=== PATIENT | female | born 1950 | race Caucasian/White ===

== ENCOUNTER 2025-03-21 23:54 | Inpatient (IN) | payer OTHER, MEDICARE ==
[~2025-03-21] VITALS: Ht 162.6 cm; Wt 55.0 kg
[~2025-03-21 23:54] MED LIST: LEVO50TA PO; LOSA1TAB36 PO; MEMA10TA PO; SIMV-49 PO
[2025-03-22] VITALS (31 sets, daily range): BP systolic 97–172; BP diastolic 61–127; TEMP 98–99; O2SAT 92–100
[2025-03-22] MEDS ORDERED: DILT30TA2 GT (00:33)
[2025-03-22] MEDS ORDERED: PANT40TA2 GT (00:33)
[2025-03-22] MEDS ORDERED: ACET-3117 GT (00:33)
[2025-03-22] MEDS ORDERED: OMEP40CA21 GT (00:33)
[2025-03-22] MEDS ORDERED: SCOP1PAT13 TD (00:33)
[2025-03-22] MEDS ORDERED: SEVE0.8P GT (00:33)
[2025-03-22] MEDS ORDERED: CINA60TA4 GT (00:33)
[2025-03-22] MEDS ORDERED: HEPA500034 SUBCUT (00:33)
[2025-03-22] MEDS ORDERED: CEPH500T GT (00:33)
[2025-03-22] MEDS ORDERED: BISA-79 GT (00:33)
[2025-03-22] MEDS ORDERED: RENA-VITE GT (00:33)
[2025-03-22] MEDS ORDERED: IPRA3AMP22 IH (00:33)
[2025-03-22] MEDS ORDERED: DOCU-342 GT (00:33)
[2025-03-22] MEDS ORDERED: MIDO10TA3 GT ×2 (00:33)
[2025-03-22] MEDS ORDERED: METO5TAB87 GT (00:33)
[2025-03-22 00:37] LABS: PLATELET COUNT (AUTO) 483 K/uL (179-408); RED BLOOD CELL COUNT(AUTO) 3.86 MIL/uL (3.63-4.92); RED CELL DISTRIBUTION WIDTH 19.8 % (12.3-17.7); WHITE BLOOD COUNT (AUTO) 16.3 K/uL (3.8-11.8)
[2025-03-22 00:45] LABS: CREATININE 6.1 mg/dL (0.6-1.3); SODIUM SERUM 140 mmol/L (136-145); UREA NITROGEN, BLOOD 69 mg/dL (7-18)
[2025-03-22] MEDS ORDERED: ONDANSETRON 4 MG/2 ML VIAL ONE (00:46)
[2025-03-22] MEDS: IV NORMAL SALINE 1000 ML BAG IV ONE (00:46)
[2025-03-22] MEDS: ONDANSETRON 4 MG/2 ML VIAL IV ONE (00:46)
[2025-03-22 00:50] LABS: ASPARTATE AMINOTRANSFERASE 17 U/L (15-37); TOTAL PROTEIN, SERUM 8.3 g/dL (6.4-8.2)
[2025-03-22] MEDS ORDERED: PIPERACILLIN/TAZOBACTAM/D5W 50 ML IV ONE (01:01)
[2025-03-22] MEDS ORDERED: FAMOTIDINE. 20 MG/2 ML VIAL IV ONE (01:02)
[2025-03-22] MEDS: FAMOTIDINE. 20 MG/2 ML VIAL IV ONE (01:09)
[2025-03-22] MEDS: PIPERACILLIN SODIUM/TAZOBACTAM 3.375 G in IV DEXTROSE 5% 50 ML IV ONE (01:09)
[2025-03-22] MEDS ORDERED: ONDANSETRON 4 MG/2 ML VIAL IV PRN (06:15)
[2025-03-22] MEDS ORDERED: ENOXAPARIN SODIUM 40 MG/0.4 ML DISP.SYRIN SQ SCH (06:15)
[2025-03-22] MEDS ORDERED: ACETAMINOPHEN 650 MG SUPP.RECT RC PRN (06:15)
[2025-03-22 06:27] LABS: PLATELET COUNT (AUTO) 449 K/uL (179-408); RED BLOOD CELL COUNT(AUTO) 3.61 MIL/uL (3.63-4.92); RED CELL DISTRIBUTION WIDTH 20.3 % (12.3-17.7); WHITE BLOOD COUNT (AUTO) 14.5 K/uL (3.8-11.8)
[2025-03-22 06:41] LABS: ASPARTATE AMINOTRANSFERASE 19 U/L (15-37); CREATININE 6.2 mg/dL (0.6-1.3); SODIUM SERUM 143 mmol/L (136-145); TOTAL PROTEIN, SERUM 7.7 g/dL (6.4-8.2); UREA NITROGEN, BLOOD 73 mg/dL (7-18)
[2025-03-22] MEDS: PANTOPRAZOLE SODIUM 40 MG VIAL IV SCH (08:17)
[2025-03-22] MEDS: IV NS 1000 ML 1,000 ML IV PRN (08:18)
[2025-03-22] MEDS ORDERED: REMEDY ESSENTIAL ZINC PASTE 113 GM TOP PRN (09:45)
[2025-03-22] MEDS: PIPERACILLIN/TAZO 2.25 G in IV DEXTROSE 5% 50 ML IV SCH (09:46)
[2025-03-22] MEDS: HEPARIN SODIUM,PORCINE 5,000 UNITS/ML VIAL SQ SCH (09:50)
[2025-03-22 10:12] LABS: ABG BASE EXCESS 1.7 mmol/L (-2.0-3.0); ABG HCO3 27.3 mmol/L (21.0-28.0); ABG PCO2 47.4 mmHg (32.0-45.0); ABG PH 7.379 (7.350-7.450); ABG PO2 79.7 mmHg (83.0-108.0); ABG SITE RIGHT RADIAL; ABG TOTAL HEMOGLOBIN 11.8 G/dL (12.0-16.0); AaDO2 95.5 mmHg; FIO2 28.0 %; FLOW, BLOOD GAS 5.00 L/min (0.00-30.00)
[2025-03-22] MEDS ORDERED: BISA10SU61 RC (10:16)
[2025-03-22] MEDS ORDERED: ACET-3752 PO (10:21)
[2025-03-22] MEDS ORDERED: PIPERACILLIN SODIUM/TAZOBACTAM 3.375 G in IV DEXTROSE 5% 50 ML IV SCH (12:00)
[2025-03-22 12:57] LABS: *BILIRUBIN,URIN NEGATIVE (NEGATIVE); *BLOOD, URINE 2+ (NEGATIVE); *CLARITY,URINE CLOUDY (CLEAR); *COLOR,URINE YELLOW (YELLOW); *KETONES,URINE NEGATIVE (NEGATIVE); *UROBILINOGEN,URINE 0.2 E.U./dl (NORMAL); LEUKOCYTE ESTERASE ,URINE 3+ (NEGATIVE); NITRITE, URINE NEGATIVE (NEGATIVE); UGLUCOSE NEGATIVE (NEGATIVE)
[2025-03-22] MEDS: SEVELAMER CARBONATE 800 MG POWD.PACK GT SCH (12:59)
[2025-03-22] MEDS: MIDODRINE HCL 5 MG TABLET GT SCH (13:00)
[2025-03-22] MEDS: METOCLOPRAMIDE HCL 5 MG TABLET GT SCH (13:02)
[2025-03-22] MEDS: DILTIAZEM HCL 30 MG TABLET GT SCH (13:03)
[2025-03-22 13:05] LABS: *PROTEIN,URINE 3+ (NEGATIVE)
[2025-03-22 13:11] LABS: SQUAMOUS EPITHELIAL CELL,UR FEW /HPF (NONE SEEN)
[2025-03-22 14:16] LABS: BAND % (MANUAL) 8 % (0-10); LYMPHOCYTES % (MANUAL) 4 % (20-40); MONOCYTES % (MANUAL) 9 % (2-10); NEUTROPHILS % (MANUAL) 79 % (42-75)
[2025-03-22 14:17] LABS: PLATELET ESTIMATE ADEQUATE
[2025-03-22] MEDS ORDERED: VANCOMYCIN IV 2,000 MG in IV DEXTROSE 5% 500 ML IV ONE (20:30)
[2025-03-22] MEDS ORDERED: VANCOMYCIN IV 200 ML ONE (21:17)
[2025-03-22] MEDS: REMEDY ESSENTIAL ZINC PASTE 113 GM TOP SCH (21:27)
[2025-03-22] MEDS: VANCOMYCIN IV 1,000 MG in IV DEXTROSE 5% 250 ML IV ONE (21:34)
[2025-03-23] VITALS (11 sets, daily range): BP systolic 92–121; BP diastolic 56–69; TEMP 97.2–98.7; O2SAT 90–98
[2025-03-23 05:15] LABS: PLATELET COUNT (AUTO) 421 K/uL (179-408); RED BLOOD CELL COUNT(AUTO) 3.37 MIL/uL (3.63-4.92); RED CELL DISTRIBUTION WIDTH 19.9 % (12.3-17.7); WHITE BLOOD COUNT (AUTO) 11.8 K/uL (3.8-11.8)
[2025-03-23 05:23] LABS: CREATININE 7.2 mg/dL (0.6-1.3); SODIUM SERUM 142 mmol/L (136-145)
[2025-03-23 05:34] LABS: UREA NITROGEN, BLOOD 87 mg/dL (7-18)
[2025-03-23] MEDS: PANTOPRAZOLE ORAL SUSPENSION 40 MG SUSPDR.PKT GT SCH (06:03)
[2025-03-23 06:05] LABS: EOSINOPHILS % (MANUAL) 2 % (0-8); LYMPHOCYTES % (MANUAL) 8 % (20-40); MONOCYTES % (MANUAL) 10 % (2-10); NEUTROPHILS % (MANUAL) 80 % (42-75); PLATELET ESTIMATE INCREASED
[2025-03-23] MEDS: ALBUMIN HUMAN 25% 100 ML IV PRN (08:07)
[2025-03-23] MEDS: FOLIC ACID/VITAMIN B COMP W-C TABLET GT SCH (09:50)
[2025-03-23] MEDS: CINACALCET HCL 30 MG TABLET PO SCH (10:01)
[2025-03-23] MEDS: VANCOMYCIN IV 500 MG in IV DEXTROSE 5% 100 ML IV ONE (14:46)
[2025-03-23] MEDS: NEPRO 1000 ML GT PRN (20:34)
[2025-03-24] VITALS (12 sets, daily range): BP systolic 90–122; BP diastolic 61–72; TEMP 97.5–98.8; O2SAT 92–96
[2025-03-24 07:56] LABS: CREATININE 5.0 mg/dL (0.6-1.3); SODIUM SERUM 138 mmol/L (136-145); UREA NITROGEN, BLOOD 50 mg/dL (7-18)
[2025-03-24 08:35] LABS: PLATELET COUNT (AUTO) 413 K/uL (179-408); RED BLOOD CELL COUNT(AUTO) 3.49 MIL/uL (3.63-4.92); RED CELL DISTRIBUTION WIDTH 19.3 % (12.3-17.7); WHITE BLOOD COUNT (AUTO) 10.0 K/uL (3.8-11.8)
[2025-03-24] MEDS: MEROPENEM 500 MG in IV NORMAL SALINE 50 ML IV SCH (16:34)
[2025-03-25] VITALS (12 sets, daily range): BP systolic 100–139; BP diastolic 70–77; TEMP 97.8–98.9; O2SAT 83–96
[2025-03-25 08:27] LABS: PLATELET COUNT (AUTO) 377 K/uL (179-408); RED BLOOD CELL COUNT(AUTO) 3.59 MIL/uL (3.63-4.92); RED CELL DISTRIBUTION WIDTH 19.4 % (12.3-17.7); WHITE BLOOD COUNT (AUTO) 9.7 K/uL (3.8-11.8)
[2025-03-25 08:48] LABS: CREATININE 4.2 mg/dL (0.6-1.3); SODIUM SERUM 141 mmol/L (136-145); UREA NITROGEN, BLOOD 38 mg/dL (7-18)
[2025-03-25] MEDS: SCOPOLAMINE PATCH 1 MG/72 HRS PATCH TD SCH (09:22)
[2025-03-25] MEDS: POTASSIUM CHLORIDE 20 MEQ POWDER PACKET GT ONE (12:39)
[2025-03-25] MEDS ORDERED: MERO500V23 IV (15:45)
[2025-03-25] MEDS ORDERED: VANC125C11 PO (15:45)
[2025-03-26] VITALS (13 sets, daily range): BP systolic 103–125; BP diastolic 57–66; TEMP 97.8–98.3; O2SAT 92–99
[2025-03-26] MEDS: IPRATROPIUM BROMIDE 0.5 MG/2.5 ML NEBU NEB PRN (01:04)
[2025-03-26] MEDS: ALBUTEROL SULFATE 2.5 MG/3 ML NEBU NEB PRN (01:04)
[2025-03-26 01:10] LABS: HEPATITIS B CORE AB, TOTAL Negative (Negative); HEPATITIS B SURFACE AG Negative (Negative)
== END 2025-03-26 22:00 | DRG 720 ==
LOC: ER 03-22 00:05 → CCU 03-22 05:30 → TELE3 03-23 06:12
PROVIDERS: ADMIT Nurse Practitioner Family; ATTEND Nurse Practitioner Family
PROC: 05H933Z Insertion of Infusion Device into Right Brachial Vein, Percutaneous Approach (ICD-10-PCS; principal; 2025-03-22)
PROC: 5A1D70Z Performance of Urinary Filtration, Intermittent, Less than 6 Hours Per Day (ICD-10-PCS; 2025-03-24)
DX: A41.9 Sepsis, unspecified organism (principal); E43 Unspecified severe protein-calorie malnutrition; A09 Infectious gastroenteritis and colitis, unspecified; R53.2 Functional quadriplegia; Z93.0 Tracheostomy status; I12.0 Hypertensive chronic kidney disease with stage 5 chronic kidney disease or end stage renal disease; I21.A1 Myocardial infarction type 2; R13.10 Dysphagia, unspecified; J18.9 Pneumonia, unspecified organism; N18.6 End stage renal disease; Z99.2 Dependence on renal dialysis; T83.511A Infection and inflammatory reaction due to indwelling urethral catheter, initial encounter; T83.512A Infection and inflammatory reaction due to nephrostomy catheter, initial encounter; J96.11 Chronic respiratory failure with hypoxia; N39.0 Urinary tract infection, site not specified; B96.20 Unspecified Escherichia coli [E. coli] as the cause of diseases classified elsewhere; D63.1 Anemia in chronic kidney disease; G91.2 (Idiopathic) normal pressure hydrocephalus; G30.9 Alzheimer's disease, unspecified; I47.10 Supraventricular tachycardia, unspecified; D75.839 Thrombocytosis, unspecified; Z16.12 Extended spectrum beta lactamase (ESBL) resistance; Y73.8 Miscellaneous gastroenterology and urology devices associated with adverse incidents, not elsewhere classified; Y92.129 Unspecified place in nursing home as the place of occurrence of the external cause; Z93.1 Gastrostomy status; K57.30 Diverticulosis of large intestine without perforation or abscess without bleeding; M48.54XA Collapsed vertebra, not elsewhere classified, thoracic region, initial encounter for fracture; Z16.24 Resistance to multiple antibiotics; Z93.6 Other artificial openings of urinary tract status; Z90.49 Acquired absence of other specified parts of digestive tract; Z85.038 Personal history of other malignant neoplasm of large intestine; Z79.899 Other long term (current) drug therapy; K82.8 Other specified diseases of gallbladder; F02.80 Dementia in other diseases classified elsewhere, unspecified severity, without behavioral disturbance, psychotic disturbance, mood disturbance, and anxiety; R47.01 Aphasia; Z87.442 Personal history of urinary calculi; L89.156 Pressure-induced deep tissue damage of sacral region
CPT/HCPCS: 36415; 36600; 70030-TC; 70450; 71045; 71250; 83605; 83690; 83735; 84100; 84484; 85025; 85610; 86704; 86706; 87040; 87077; 87086; 87340; 93307; 94640; 94664; 94760; 99082-TC; A4606; A4663; A6213; C1758; G0378; J1308; J1644; J1956; J2185; J2405; J2470; J2543; J3373; J3590; J7040; J7050; J7060; J8597; P9047